=== PATIENT | female | born 1940 | race Caucasian/White ===

== ENCOUNTER 2016-09-20 19:18 | Inpatient (IN) | payer OTHER, BC ==
--- NOTE | 2016-09-20 19:35 | EDPHY ---
H & P Stated Complaint: LLE weakness at 1530, sent from [place] Time Seen by Provider: 09/20/16 19:34 - Personal History Current Tetanus/Diphtheria Vaccine: Yes Current Tetanus Diphtheria and Acellular Pertussis (TDAP): Yes - Medical/Surgical History Hx Asthma: No Hx Chronic Respiratory Disease: Yes Hx Diabetes: No Hx Cardiac Disease: Yes Hx Renal Disease: No Hx Cirrhosis: No Hx Alcoholism: No Hx HIV/AIDS: No Hx Splenectomy or Spleen Trauma: No Other PMH: pseudophakia, hematuria, systitis, seborrheic keratoses, hepatitis, carotid artery diease, aneurysm, ophthalmic artery, hypertension, bilateral posterior vitreous detachment, macular degeneration, subconjuctival hemorrhage of R eye, peripheral neuropathy, sleep apnea, insomnia, major depression, dyslipidemia, vitamin D deficiency, hyperthyroidism, hypothyroid, chronic blood loss anemia - Social History Smoking Status: Former smoker Constitutional: Initial Vital Signs Temperature (C) 36.4 C 09/20/16 19:30 Heart Rate 77 09/20/16 19:30 Respiratory Rate 14 09/20/16 19:30 Blood Pressure 169/85 H 09/20/16 19:30 O2 Sat (%) 94 09/20/16 19:30 O2 Delivery Mode Room Air Allergies/Adverse Reactions: iodine Allergy (Verified 09/20/16 19:28) levofloxacin [From Levaquin] Allergy (Verified 09/20/16 19:28) Home Medications: Medication Instructions Recorded Imipramine HCl 09/20/16 LEVOTHYROXINE SODIUM 09/20/16 Lisinopril 09/20/16 Multivitamin 09/20/16 [place] 3 Fish Oil Softgel 09/20/16 Preservision Areds Softgel 09/20/16 Proair Hfa Icu (*) 09/20/16 Remeron soltab 15 mg (*) 09/20/16 Symbicort 80-4.5 Mcg Inhaler 09/20/16 Vitamin D3 09/20/16 Medical Decision Making ED Course/Re-evaluation: CHIEF COMPLAINT: Right-sided weakness HISTORY OF PRESENT ILLNESS: This patient is a 76 year old female who presents with acute weakness to her right arm and right leg beginning at 1700 today and persisting for 1-2 hours and subsequently decreasing over time. She was seen at [facility] and had a CT of her head done at that time which was negative for acute hemorrhage. Upon arrival, she complains of mild residual weakness to her right leg. Her remaining symptoms have fully resolved. She denies headache, dizziness, or sensory deficits. She reports one prior similar episode with right upper extremity weakness 2-3 weeks prior to arrival. She has an extensive medical history including remote history of right-sided AV malformation. REVIEW OF SYSTEMS: A 10 point review of systems was performed and is negative with the exception of the elements mentioned in the history of present illness. PHYSICAL EXAM: HR 77, BP 169/85, O2 Sat 94%, RR 14. Temp noted General Appearance: Alert, well hydrated, appropriate, and non-toxic appearing. Head: Atraumatic without scalp tenderness or obvious injury Eyes: Pupils equal, round, reactive to light and accommodation, EOMI, no trauma , no injection, no nystagmus. Hemorrhagic conjunctiva to right eye ( ophthalmology evaluated yesterday). Ears: Clear bilaterally, no perforation, normal landmarks Nose: Atraumatic, no rhinorrhea, clear. Throat: There is no erythema or exudates, no lesions, normal tonsils, mucus membranes moist. Neck: Supple, 2+ carotid upstroke, nontender, no lymphadenopathy. Respiratory: No retractions, no distress, and no accessory muscle use. Decreased breath sounds bilaterally with mild wheezing. Cardiovascular: Regular rate and rhythm, no murmurs, rubs, or gallops. Bilateral carotid, radial, dorsalis pedis, and posterior tibial pulses intact. Good capillary refill all extremities. Gastrointestinal: Abdomen is soft, nontender, non-distended, no masses, no rebound, no guarding, no peritoneal signs. Musculoskeletal: Normal active ROM of all extremities, atraumatic. Neurological: Alert, appropriate, and interactive. The patient has normal DTRs and non-focal cranial nerves, sensory, and cerebellar exam. Right lower extremity motor weakness. Skin: No rashes, good turgor, no nodules on palpation. Past medical and surgical history: pseudophakia, hematuria, cystitis, seborrheic keratoses, hepatitis, carotid artery disease, aneurysm, ophthalmic artery, hypertension, bilateral posterior vitreous detachment, macular degeneration, subconjuctival hemorrhage of R eye, peripheral neuropathy, sleep apnea, insomnia, major depression, dyslipidemia, vitamin D deficiency, hyperthyroidism, hypothyroid, chronic blood loss anemia Social history: Lives in [place], retired. DIFFERENTIAL DIAGNOSIS: Differential diagnosis for the patient's right-sided weakness includes but is not limited to CVA, TIA, or electrolyte imbalance. MEDICAL DECISION MAKING: This 76 year old female was referred to us by Emergency Medicine staff at [facility] for acute right-sided weakness to her upper and lower extremity presenting at 1700 today and resolving after 2- 3 hours. She had a CT of her head completed at their facility which was reported to me to be negative for acute hemorrhage. Upon arrival to our facility , the majority of her symptoms have resolved. Plan for consultation with the on-call neurologist and subsequent admission. Will order MRI of the brain with and without contrast, echocardiogram, and carotid studies to be taken following admission. 2030: Consultation with Dr. Darek Leavitt, hospitalist, who accepts admission. 2240: Consultation with Dr. Samir Mercer, neurologist, who will visit the patient in the hospital. Departure - Departure Disposition: [facility] Inpatient Acute Clinical Impression: Upper extremity weakness, Lower extremity weakness Condition: Fair Report Scribed for: Evan Jackson Report Scribed by: Ansley Abdi Date of Report: 09/20/16 Time of Report: 20:04
[2016-09-20] MEDS ORDERED: ONDANSETRON 4 MG/2 ML VIAL IVP PRN (20:58)
[2016-09-20] MEDS ORDERED: ONDANSETRON DISINTEGRATING 4 MG TAB PO PRN (20:58)
[2016-09-20] MEDS ORDERED: D5W 1/2 NS 1,000 ML IV SCH (21:00)
--- NOTE | 2016-09-20 21:35 | US ---
Bilateral Duplex/Doppler Carotid Sonography Clinical Indications: Left-sided weakness. Technique: The cervical portions of the carotid and vertebral arteries were imaged and interrogated by color and pulsed Duplex/Doppler. Spectral analysis was performed. Findings: Right Carotid: Right CCA peak systolic velocity = 67 cm/sec Right ICA peak systolic velocity = 58 cm/sec Right ECA peak systolic velocity = 80 cm/sec Right ICA/CCA systolic velocity ratio = 0.9 No flow-limiting carotid stenosis. Mild calcified plaque involving the right carotid bulb and proxima l right internal carotid artery. Left Carotid: Left CCA peak systolic velocity = 54 cm/sec Left ICA peak systolic velocity = 83 cm/sec Left ECA peak systolic velocity = 199 cm/sec Left ICA/CCA systolic velocity ratio = 1.5 No flow-limiting carotid stenosis.. Mild calcified plaque involving the left carotid bulb and proxima l left internal carotid artery. Vertebral Arteries: Antegrade flow is shown by pulsed Doppler of each vertebral artery. Impression: 1. No evidence of flow-limiting carotid stenosis. 2. Mild atherosclerotic disease bilateral carotid bulbs. 3. Bilateral vertebral arteries are patent with antegrade flow. Measurement of carotid stenosis is based on velocity parameters that correlate the residual internal carotid diameter with [place] Symptomatic Carotid Endarterectomy Trial (NASCET) based stenosis levels.
--- NOTE | 2016-09-20 22:01 | PDGENHP ---
History and Physical - Chief Complaint Acute paresis - History of Present Illness Primary care provider: Dr. Ariza HPI: 76-year-old female presents with acute paresis located in the right upper and right lower extremity with associated right mouth paresthesias and onset of symptoms at 3:00 p.m. on the day of presentation. She reports that the character of the paresis was initially weakness in her right lower extremity rendering her unable to stand or ambulate. The duration of the symptoms was persistent and she sought medical attention at [facility]. She reports that the paresis in her right upper extremity has been present over the past 2-3 weeks but it has not been of this severity. Of note, 1 week ago she began experiencing bleeding from her right eye and she saw an buyer who told her that she had and I abrasion resulting in the bleed. She otherwise denies any infectious symptoms. She denies any recent medication changes. History Information - Allergies/Home Medication List Allergies/Adverse Reactions: levofloxacin [From Levaquin] Allergy (Intermediate, Verified 09/20/16 20:55) Gadolinium-Containing Contrast Medi Allergy (Mild, Verified 09/20/16 20:55) Hives iodine Allergy (Mild, Verified 09/20/16 20:55) Hives Home Medications: Cholecalciferol Vit D3 [Vitamin D3 (*)] 1,000 units PO DAILY 09/20/16 [Last Taken 09/19/16] Imipramine HCl [Imipramine HCl 25 mg (*)] 25 mg PO HS 09/20/16 [Last Taken 09/19] Levothyroxine [Synthroid 50 mcg (*)] 50 mcg PO DAILY06 09/20/16 [Last Taken 02/27] Lisinopril [Zestril 10 mg (*)] 5 mg PO DAILY 09/20/16 [Last Taken 09/19/16] Mirtazapine [Remeron soltab 15 mg (*)] 7.5 mg PO HS 09/20/16 [Last Taken ] Multivitamins [Multivitamin (*)] 1 each PO DAILY 09/20/16 [Last Taken 09/19/16] [place]-3 Fatty Acids [Fish Oil 1000 mg (*)] 1,000 mg PO DAILY 09/20/16 [Last Taken 09/19/16] Vit A/Vit C/Vit E/Zinc/Copper [Preservision Areds Softgel] 1 each PO DAILY 09/20 [Last Taken 09/19/16] I have personally reviewed and updated: family history, medical history, social history, surgical history - Past Medical History hypertension Additional medical history: Reported aneurysm on the right. Hypothyroidism. Obstructive sleep apnea. Shortness of breath/possible COPD - Surgical History Reports: cholecystectomy, hysterectomy Additional surgical history: Cataract surgery - Family History Additional family history: Father with CVA at age 90 - Social History Smoking Status: Former smoker Alcohol Use: Occasionally Drug Use: Marijuana (Rarely) Additional social history: Independent, lives in a multilevel house in [place] Review of Systems ROS: 10pt was reviewed & negative except for what was stated in HPI & below Constitutional: Reports: weakness Neurological: Reports: paresthesia (Face), weakness (Right son) Physical Exam Temp Pulse Resp BP Pulse Ox 36.4 C 85 20 138/94 H 94 09/20/16 19:30 09/20/16 20:11 09/20/16 20:11 09/20/16 20:11 09/20/16 20:11 Constitutional: no apparent distress, appears nourished, not in pain Eyes: PERRL, anicteric sclera, EOMI Ears, Nose, Mouth, Throat: moist mucous membranes, hearing normal, ears appear normal, no oral mucosal ulcers Cardiovascular: regular rate and rhythym, no murmur, rub, or gallop, No carotid bruit, No edema Respiratory: no respiratory distress, no rales or rhonchi, clear to auscultation Gastrointestinal: normoactive bowel sounds, soft, non-tender abdomen, no palpable masses Genitourinary: no bladder fullness, no bladder tenderness Skin: warm, normal color, no rashes or abrasions, no fluctuance, no induration, No mottled Musculoskeletal: no muscle tenderness, normal joint ROM, no joint effusions Neurologic: AAOx3, sensation intact bilaterally, weakness (Motor strength 4/5 in the right lower extremity, 5/5 in the right upper extremity), CN II-XII Intact Psychiatric: interacting appropriately, not anxious, not encephalopathic, thought process linear Lab Data & Imaging Review Visualized and Interpreted EKG results: Yes EKG Interpretation: Positive for: other (Normal sinus rhythm with Q-wave in lead 3 and AVF) Assessment & Plan Assessment: 76-year-old female presents with suspected acute CVA Plan: 1. Suspected CVA. Acute, new problem this provider, further workup indicated. Evidenced by right hemiparesis with unresolved symptoms in the right lower extremity as well as right facial paresthesia and no evidence of intracranial hemorrhage on head CT per discussion with Dr. Jackson -patient is outside the window for tPA as her symptom onset was at 3:00 p.m. and she also has a direct contraindication with possible arteriovenous malformation -get MRI of brain without contrast as well as MRA given her possible history of AVM and recent bleeding from her high, although I believe it is less likely that a vascular malformation is the cause of her symptoms given that it was reportedly on the right side and her symptoms correspond with a left-sided hemispheric lesion -get carotid ultrasounds given her contrast allergy to gadolinium -placed on telemetry overnight and monitor for arrhythmias -get echocardiogram with bubble study -get Neurology consultation a.m. -get lipid panel and hemoglobin A1c -get swallow eval, neuro checks, PT OT evaluations, may require a cane is able to ambulate -initiate aspirin 81 mg, statin if LDL is greater than 70 2. Hypertension. Chronic, patient is on home antihypertensive which have yet to be reconciled per outside report was reviewed from 09/20/2016 Deana Zambrano by Jakob De Leon 3. Possible COPD. Continue on home Advair and albuterol inhalers Diet. Cardiac once swallow eval completed Prophylaxis. High risk patient, pharmacologic contraindicated given a possible CVA, SCDs Code. Full per patient, her son and daughter are joint MPOA Disposition. Anticipated discharge is 09/21/2016, pending further workup and treatment as outlined above.
--- NOTE | 2016-09-20 22:18 | MR ---
MRI of the Brain (Without Contrast) at 2137 hours Clinical Indication: Right-sided weakness. Stroke. Technique: T1-weighted images were acquired axially and sagittally from the foramen magnum to the ve rtex. Axial fast inversion recovery, fast T2-weighted, and diffusion-weighted axial images were obta ined without contrast. Findings: The ventricles, cisterns, and sulci are widened consistent with atrophy. No hydrocephalus, midline shift, herniation, or epidural/subdural hematomas. No intracranial hemorrhage or masses. Dif fusion weighted sequence demonstrates 1 cm focus of restricted diffusion in the posterior limb of the left internal capsule consistent with acute infarct. Cerebellar tonsils are in normal position. Pitu itary gland is normal in size. Normal signal flow-void in the superior sagittal sinus, basilar artery , and bilateral internal carotid arteries indicating patency. Paranasal sinuses and mastoid air cells are clear. Scattered hyperintense T2/FLAIR signal foci throughout bilateral cerebral white matter. Impression: 1. A 1 cm acute lacunar infarct in the posterior limb of the left internal capsule. 2. No acute hemorrhage, hydrocephalus, mass effect, or herniation. 3. Mild cerebral atrophy. 4. Multiple nonspecific hyperintense T2/FLAIR signal abnormalities in the white matter of bilateral c erebral hemispheres. Differential diagnosis includes moderate microvascular ischemic gliosis, post-i nfectious/post-inflammatory sequela, atypical demyelinating disease, or migraine-related sequela. Findings and recommendations discussed with Emergency Department physician, Dr. Darci Fitzgerald at 2210 hour, 09/20/2016. Final report concurs with initial preliminary interpretation.
--- NOTE | 2016-09-20 22:34 | MR ---
MR Arteriogram of the [place] at 2154 hours Clinical Indications: Right-sided weakness, R29.818 Neurological changes strongly suggesting intrace rebral aneurysm. Technique: A [id number] gradient echo technique was used for thin axial images at the skull base for evaluation of major vessels of the [place]. Three-dimensional technique was used with a 30-degree gradient echo flip angle and a traveling saturation band. Images were manipulated by the radiologist at the computer workstation. Findings: Major vessels of the [place] are adequately displayed, demonstrating no evidence of aneurysm, vascular malformation, flow-limiting stenosis, or occlusion. Impression: Negative MRA of the [place].
[2016-09-20 22:43] LABS: % IMMATURE GRANULYOCYTES 0.3 % (0.0-1.1); ABSOLUTE IMMATURE GRANULOCYTES 0.02 10^3/uL (0.00-0.10); ADD DIFF? NO; ADD MORPH? NO; ADD SCAN? NO; ATYPICAL LYMPHOCYTE FLAG 0 (0-99); FRAGMENT RBC FLAG 0 (0-99); HEMATOCRIT 43.1 % (38.0-47.0); HEMOGLOBIN 14.6 g/dL (12.6-16.3); LEFT SHIFT FLG 0 (0-99); LIPEMIA HEMOLYSIS FLAG 90 (0-99); MEAN CELL HEMOGLOBIN 30.7 pg (27.9-34.1); MEAN CELL HEMOGLOBIN CONCENTR. 33.9 g/dL (32.4-36.7); MEAN CELL VOLUME 90.7 fL (81.5-99.8); MEAN PLATELET VOLUME 10.4 fL (8.7-11.7); PLATELET CLUMPS FLAG 10 (0-99); PLATELET COUNT 258 10^3/uL (150-400); RED BLOOD CELL COUNT 4.75 10^6/uL (4.18-5.33); RED CELL DISTRIBUTION WIDTH 13.8 % (11.5-15.2)
[2016-09-20 22:52] LABS: INR 1.01 (0.83-1.16); PROTIME(PATIENT) 13.2 SEC (12.0-15.0)
[2016-09-20 22:55] LABS: ANION GAP 13 mEq/L (8-16); CALCIUM 9.8 mg/dL (8.5-10.4); CARBON DIOXIDE 23 mEq/l (22-31); CHLORIDE 110 mEq/L (97-110); CREATININE 0.7 mg/dL (0.6-1.0); GLOMERULAR FILTRATION RATE > 60; GLUCOSE 90 mg/dL (70-100); POTASSIUM 4.2 mEq/L (3.5-5.2); SODIUM 146 mEq/L (134-144)
[2016-09-20 23:05] LABS: TROPONIN I < 0.012 ng/mL (0-0.034)
[2016-09-20] MEDS: IMIPRAMINE HCL 25 MG TAB PO SCH (23:15)
[2016-09-20] MEDS: MIRTAZAPINE 15 MG ODTAB PO SCH (23:15)
[2016-09-21 05:20] LABS: % IMMATURE GRANULYOCYTES 0.6 % (0.0-1.1); ABSOLUTE IMMATURE GRANULOCYTES 0.03 10^3/uL (0.00-0.10); ADD DIFF? NO; ADD MORPH? NO; ADD SCAN? NO; ATYPICAL LYMPHOCYTE FLAG 0 (0-99); FRAGMENT RBC FLAG 20 (0-99); HEMATOCRIT 42.6 % (38.0-47.0); HEMOGLOBIN 14.3 g/dL (12.6-16.3); LEFT SHIFT FLG 0 (0-99); LIPEMIA HEMOLYSIS FLAG 80 (0-99); MEAN CELL HEMOGLOBIN CONCENTR. 33.6 g/dL (32.4-36.7); MEAN CELL VOLUME 89.3 fL (81.5-99.8); MEAN PLATELET VOLUME 10.2 fL (8.7-11.7); PLATELET CLUMPS FLAG 10 (0-99); PLATELET COUNT 246 10^3/uL (150-400); RED BLOOD CELL COUNT 4.77 10^6/uL (4.18-5.33); RED CELL DISTRIBUTION WIDTH 13.8 % (11.5-15.2)
[2016-09-21 05:34] LABS: APTT 30.3 SEC (23.0-38.0); INR 1.05 (0.83-1.16); PROTIME(PATIENT) 13.6 SEC (12.0-15.0)
[2016-09-21] MEDS: LEVOTHYROXINE 50 MCG TAB PO SCH (05:39)
[2016-09-21 05:56] LABS: ALANINE AMINOTRANSFERASE 42 IU/L (9-52); ALKALINE PHOSPHATASE 83 IU/L (38-126); ANION GAP 12 mEq/L (8-16); ASPARTATE AMINOTRANSFERASE 27 IU/L (14-46); BILIRUBIN,TOTAL 0.5 mg/dL (0.1-1.4); CALCIUM 9.6 mg/dL (8.5-10.4); CARBON DIOXIDE 23 mEq/l (22-31); CHLORIDE 109 mEq/L (97-110); CHOLESTEROL 219 mg/dL (140-220); CHOLESTEROL/HDL RATIO 3.84 RATIO (1.00-4.44); CREATININE 0.7 mg/dL (0.6-1.0); GLOMERULAR FILTRATION RATE > 60; GLUCOSE 102 mg/dL (70-100); HIGH DENSITY LIPOPROTEIN 57 mg/dL (40-85); LDL/HDL RATIO 2.49 RATIO (1.00-3.22); LOW DENSITY LIPOPROTEIN 142 mg/dL (80-100); NON-HIGH DENSITY LIPOPROTEIN 162 mg/dL (90-129); POTASSIUM 4.1 mEq/L (3.5-5.2); SODIUM 144 mEq/L (134-144); TOTAL PROTEIN 6.6 g/dL (6.3-8.2); TRIGLYCERIDE 101 mg/dL (35-135); VERY LOW DENSITY LIPOPROTEINS 20 mg/dL (8-25)
[2016-09-21 06:03] LABS: TROPONIN I < 0.012 ng/mL (0-0.034)
[2016-09-21] MEDS: PRESERVISION AREDS2 FORMULA EYE VIT 1 EACH PO SCH (08:38)
[2016-09-21] MEDS: LISINOPRIL 5 MG TAB PO SCH (08:40)
[2016-09-21] MEDS: CHOLECALCIFEROL VIT D3 1,000 UNITS TAB PO SCH (08:40)
[2016-09-21] MEDS: OMEGA-3 FATTY ACIDS 1,000 MG CAP PO SCH (08:40)
[2016-09-21] MEDS: ASPIRIN EC 81 MG TAB PO SCH (08:40)
[2016-09-21] MEDS: MULTIVITAMINS 1 EACH TAB PO SCH (08:41)
[2016-09-21] MEDS ORDERED: LISINOPRIL 10 MG TAB PO SCH (09:00)
[2016-09-21] MEDS ORDERED: NON-FORMULARY NEW DRUG (Vit A/Vit C/Vit E/Zinc/Copper [Preservision Areds Softgel] 1 EACH) PO SCH (09:00)
[2016-09-21 09:46] LABS: HEMOGLOBIN A1C 6.1 % (4.0-6.0)
--- NOTE | 2016-09-21 12:45 | ECHO ---
[id number] + + [address] : : [place] [address] : : [phone] + + Adult Echocardiographic Report + + :Name: KATHARINA WESTBROOK SStudy Date: 09/21/2016 08:13 AM : : Hospital Admission Number: [id number] Loc ation: 342: :: 1940 Gender: Female Height: 65 in : :Age: 76 yrs Race: WH,UN Weight: 145 lb : :Reason For Study: TIA vs CVA/right upper and lower extremity : :weakness BSA: 1.7 me ters2 : + + MMode/2D Measurements & Calculations IVSd: 0.63 cm LVIDd: 4.3 cm FS: 44.2 % Ao root diam: LVPWd: 0.95 cm LVIDs: 2.4 cm EDV(Teich): 3.3 cm 84.5 ml LA dimension: ESV(Teich): 2.9 cm 20.6 ml EF(Teich): 75.7 % LVLd ap4: 6.7 cm SV(MOD-sp4): EDV(MOD-sp4): 25.0 ml 34.0 ml LVLs ap4: 5.6 cm ESV(MOD-sp4): 9.0 ml EF(MOD-sp4): 73.5 % Normal Measurement Values: + + :LVIDd (3.5-5.7cm) IVSd (0.6-1.1cm) LVPWd (0.6-1.1cm) Aortic Root (2.0-3.7cm)Left Atrium (1.5-4.0cm): :LV Vol(d) (76-115ml) LV Vol(s) (29-48ml) Ejec Fraction (50-65%)PV Sly (0.6- 1.2m/s) TV Sly (0.4-1.0m/s) : :MV E Sly (0.8-1.0m/s)MV A Sly (0.3-1.0m/s)LVOT Sly (0.7-1.2m/s) Asc Ao Sly ( 0.9-1.8m/s) : + + Doppler Measurements & Calculations MV E max sly: 68.1 cm/sec Ao V2 max: 88.2 cm/sec MV A max sly: 110.6 cm/sec Ao max P.1 mmHg MV E/A: 0.62 Left Ventricle The left ventricle is normal in size. There is mild concentric left ventricular hypertrophy. Left ventricular systolic function is normal. Ejection Fraction = 65-70%. No regional wall motion abnormalities noted. Right Ventricle The right ventricle is normal in size and function. Atria The left atrial size is normal. Right atrial size is normal. The interatrial septum is intact with no evidence for an atrial septal defect. Mitral Valve The mitral valve is normal in structure and function. There is no evidence of mitral valve prolapse. There is no mitral valve stenosis. There is trace mitral regurgitation. Tricuspid Valve Normal tricuspid valve. There is trace tricuspid regurgitation. Aortic Valve The aortic valve is trileaflet. The aortic valve opens well. There is no aortic stenosis. Trace aortic regurgitation. Pulmonic Valve The pulmonic valve is not well visualized. There is no pulmonic valvular regurgitation. Great Vessels The aortic root is normal size. Pericardium/Pleural There is no pericardial effusion. There is a fat pad seen. Conclusion A complete two-dimensional transthoracic echocardiogram was performed (2D, M-mode, Doppler and color flow Doppler). Incidental finding - short run of SVT. Left ventricular systolic function is normal. There is mild concentric left ventricular hypertrophy. Ejection Fraction = 65-70%. There is trace mitral regurgitation. There is trace tricuspid regurgitation. Trace aortic regurgitation. There is a fat pad seen. * With hx. of TIA and arrythmia seen on study, consider further evaluation for cryptogenic atrial fibrillation. Final Reading Physician: Tanja Ramírez signed on 09/21/2016 12:44 PM Ordering Physician: Evan Jackson Performed By: Mai Garrison RDCS
--- NOTE | 2016-09-21 14:25 | GCON ---
[f rep st] CONSULTATION REFERRING PHYSICIAN: Bret Leavitt MD HISTORY: The patient is a 76-year-old woman who I am asked to see in neurologic consultation regardi ng stroke. History is obtained from the patient as well as review from the medical records. She is presenting in referral from Dr. Ariza in [facility]. She had an acute episode of feeling weakness in her right arm and lower extremity with some paresthesias around the right side of her mo uth at approximately 3 p.m. yesterday. The weakness was in her right lower extremity, and it made it hard for her to stand initially or even walk. She sought help and actually reported that she had no ticed some degree of weakness in the right upper extremity for 2 or 3 weeks but not nearly as severe as it is now. About 1 week ago, she had some bleeding around the right eye and saw Ophthalmology, an d they did not find anything specific other than an abrasion thought to cause the bleeding. I do not know any more details about that. She denies headache. No clear-cut exacerbating, alleviating symp toms. No chest pain, palpitations, or shortness of breath. She has not ever had a previous stroke. REVIEW OF SYSTEMS: Otherwise, a 10-point review of systems was completed and unremarkable except for that noted above. ALLERGIES: Levaquin, gadolinium-enhanced agents, iodine. HOME MEDICATIONS: Vitamin D, imipramine, Synthroid, Zestril, Remeron, and some supplements. FAMILY HISTORY: Notable for stroke. She says that somewhere in the past she was found via a cerebra l angiogram to have a fusiform type aneurysm it sounds like behind the right eye. She said MRI could not really see it, and they had to go do more advanced testing. She believes it was aneurysm, not a n arterial venous malformation, and she remembers being told it was outside on the outer part of the dura rather than internally, but we do not know exactly what was seen. This was done in [place]. ose medical records are not currently available. She has a history of sleep apnea, and there has bee n some shortness of breath and apparently some question of reactive airway disease. Prior cholecyste ctomy, hysterectomy, cataract surgery. She smoked in the past but not recently. Rare marijuana expo sure. Rare alcohol. She lives independently by herself and has an animal. PHYSICAL EXAMINATION: VITAL SIGNS: Blood pressure is 152/84, pulse is 86, respirations 17, temperat ure 36.5. GENERAL: She is a well-developed woman in no acute distress. EYES: Clear. NECK: Suppl e with no bruits or masses. CARDIAC: Regular rate and rhythm. No murmur. EXTREMITIES: No cyanosi s or edema. NEUROLOGIC: She is awake, alert, and attentive with clear fluent speech. She has an NI H stroke scale of 3. Pupils are 3 mm and reactive. No visual field loss. Extraocular movements are intact. Unremarkable fundi. Normal facial sensation and strength. I do not detect any definite fa cial weakness currently. Palate elevates symmetrically. Tongue protrudes midline. Hearing is prese rved. No weakness of head turning or shoulder shrug. Palate elevates symmetrically. Tongue protrud es midline. Motor exam, normal muscle bulk and tone with mild drift in the right upper extremity and right lower extremity with 4/5 weakness on the right side. 5/5 on the left. No abnormal movements. Rapid alternating movements are slightly slowed in the right hand compared to the left. She was ab le ambulate today with the physical therapist using her walker and maintains balance fairly well but still has a little bit of weakness in the right lower extremity. Sensation is preserved for temperat ure and light touch. She is not ataxic on [id number]. Her gait is not ataxic, but she is a filipe le cautious. Reflexes are 1+. No Babinski sign seen. DIAGNOSTIC STUDIES: Include echocardiogram without clear-cut embolic source, and she has normal ejec tion fraction. Electrolytes are unremarkable. Her LDL cholesterol is 142. The INR is normal. The CBC is normal. MR angiogram of the head did not show any significant abnormalities. Specifically, t here was no evidence of an aneurysm or arteriovenous malformation. Carotid ultrasound revealed no he modynamically significant stenosis of the carotid system. The brain MRI shows some white matter isch emic changes and an area of acute infarct in the posterior limb of the left internal capsule about a centimeter in size with no hemorrhages. IMPRESSION: The patient has suffered an acute ischemic stroke yesterday. She was outside the window when she came to [facility] for acute stroke intervention with tPA. She is stable a nd is showing signs of improvement already with a mild right hemiparesis. She has a good chance for a good recovery although I explained I am not sure she will have complete recovery. She probably terry s not need more diagnostic studies at this stage. I think the likelihood of a cardioembolic event is very low. I do not think she has to do prolonged cardiac monitoring. This looks consistent with a small-vessel ischemic type of event rather than embolism. I would recommend she go on statin therapy daily prior to discharge and aspirin, continue 81 mg daily, and we will determine whether she needs outpatient physical therapy versus the low probability of doing any inpatient rehab. More than likel y home care will be appropriate. /[id number]/MODL
--- NOTE | 2016-09-21 16:11 | HOSPPROG ---
Hospitalist Progress Note Assessment/Plan: * acute lacunar CVA of internal capsule * carotids/ echo okay * did have a run of SVT during echocardiogram. Type of stroke not consistent with embolic phenomenon but per probably refer to cardiology outpatient for monitor * still pretty weak and unsteady. Will keep the inpatient 1 more day * hypertension Subjective: weakness seems to be improving although fairly unsteady and does not feel comfortable going home Objective: Vital Signs Temp Pulse Resp BP Pulse Ox 36.9 C 92 17 132/73 H 92 09/21/16 16:00 09/21/16 16:00 09/21/16 16:00 09/21/16 16:00 09/21/16 16:00 Laboratory Results 09/21/16 04:23 09/21/16 04:23 09/20/16 09/21/16 09/22/16 05:59 05:59 05:59 Intake Total 400 Output Total 800 700 Balance -400 -700 PT 13.6 SEC (12.0-15.0) 09/21/16 04:23 INR 1.05 (0.83-1.16) 09/21/16 04:23 - Physical Exam Constitutional: no apparent distress, appears nourished, not in pain Eyes: anicteric sclera, EOMI Ears, Nose, Mouth, Throat: moist mucous membranes, hearing normal, ears appear normal Cardiovascular: regular rate and rhythym, no murmur, rub, or gallop Respiratory: no respiratory distress, no rales or rhonchi, clear to auscultation Gastrointestinal: normoactive bowel sounds, soft, non-tender abdomen, no palpable masses Skin: warm Neurologic: AAOx3, other ( right-sided weakness) Psychiatric: interacting appropriately, not anxious, not encephalopathic, thought process linear ICD10 Worksheet Patient Problems: Problems Problem Status Diagnosed Lower extremity weakness Acute Upper extremity weakness Acute
[2016-09-21] MEDS: ACETAMINOPHEN 325 MG TAB PO PRN (18:54)
[2016-09-21] MEDS: IMIPRAMINE HCL 25 MG TAB PO SCH (21:18)
[2016-09-21] MEDS: MIRTAZAPINE 15 MG ODTAB PO SCH (21:18)
[2016-09-22] MEDS: LEVOTHYROXINE 50 MCG TAB PO SCH (04:49)
[2016-09-22] MEDS: ACETAMINOPHEN 325 MG TAB PO PRN ×2 (04:52→12:33)
[2016-09-22] MEDS: MULTIVITAMINS 1 EACH TAB PO SCH (08:41)
[2016-09-22] MEDS: OMEGA-3 FATTY ACIDS 1,000 MG CAP PO SCH (08:42)
[2016-09-22] MEDS: CHOLECALCIFEROL VIT D3 1,000 UNITS TAB PO SCH (08:42)
[2016-09-22] MEDS: LISINOPRIL 5 MG TAB PO SCH (08:42)
[2016-09-22] MEDS: PRESERVISION AREDS2 FORMULA EYE VIT 1 EACH PO SCH (08:43)
[2016-09-22] MEDS: ASPIRIN EC 81 MG TAB PO SCH (08:45)
--- NOTE | 2016-09-22 09:35 | NEUROPROG ---
Assessment: The patient has an acute cerebral ischemic infarction with an NIH stroke scale of 2. the exact source is uncertain. She should continue on anti- platelet therapy and have statin added prior to discharge. She can have outpatient cardiac evaluation for consideration of prolonged monitoring. Outpatient therapy is likely to be arranged for anticipated discharge later today. I gave her my card with instructions not to drive until she sees me in about 1 month. Subjective: I am following up on this patient's case after seeing her yesterday for neurologic consultation. She was found to have a left basal ganglia infarction. She has mild deficits but continues to be aware of some right facial droop and right-sided weakness. She is describing some mild headache which is not associated with any other new symptoms. However, she would like some treatment and says Tylenol does not usually help her. The patient is describing no nausea or vomiting. No change in vision speech chewing or swallowing. She has no chest pain or shortness of breath. Objective: Vital Signs Temp Pulse Resp BP Pulse Ox 36.6 C 87 18 134/84 H 95 09/22/16 07:36 09/22/16 07:36 09/22/16 07:36 09/22/16 07:36 09/22/16 07:36 09/21/16 09/22/16 09/23/16 05:59 05:59 05:59 Intake Total 250 Output Total 400 Balance -150 PT 13.6 SEC (12.0-15.0) 09/21/16 04:23 INR 1.05 (0.83-1.16) 09/21/16 04:23 The patient is awake alert and attentive. She is oriented to person place and time. She has extraocular movements which are intact. She has a right lower facial droop but no facial asymmetry on sensation. The hearing is preserved. Motor examination reveals mild weakness of the right upper extremity 4/5 and about the same in the lower extremities. Sensation is preserved for temperature and light touch. She is not ataxic in her upper extremities. Allergies/Adverse Reactions: levofloxacin [From Levaquin] Allergy (Intermediate, Verified 09/20/16 20:55) Gadolinium-Containing Contrast Medi Allergy (Mild, Verified 09/20/16 20:55) Hives iodine Allergy (Mild, Verified 09/20/16 20:55) Hives
[2016-09-22] MEDS ORDERED: KETOROLAC 15 MG/1 ML SDV IVP ONE (11:10)
--- NOTE | 2016-09-22 15:35 | HOSPPROG ---
Hospitalist Progress Note Assessment/Plan: * acute lacunar CVA of internal capsule * carotids/ echo okay * did have a run of SVT during echocardiogram. Type of stroke not consistent with embolic phenomenon but per probably refer to cardiology outpatient for monitor * still pretty weak and unsteady. * will need to go to inpatient rehab * hypertension Subjective: Is still weak and unsteady. Physical therapy is recommending inpatient rehab. Did have a headache this morning but is now better Objective: Vital Signs Temp Pulse Resp BP Pulse Ox 36.9 C 108 H 20 127/79 H 92 09/22/16 12:00 09/22/16 12:00 09/22/16 12:00 09/22/16 12:00 09/22/16 12:00 09/21/16 09/22/16 09/23/16 05:59 05:59 05:59 Intake Total 250 200 Output Total 400 100 Balance -150 100 PT 13.6 SEC (12.0-15.0) 09/21/16 04:23 INR 1.05 (0.83-1.16) 09/21/16 04:23 - Physical Exam Constitutional: no apparent distress, appears nourished, not in pain Eyes: anicteric sclera, EOMI Ears, Nose, Mouth, Throat: moist mucous membranes, hearing normal Cardiovascular: regular rate and rhythym, no murmur, rub, or gallop Respiratory: no respiratory distress, no rales or rhonchi, clear to auscultation Skin: warm Neurologic: AAOx3, other ( right-sided) Psychiatric: interacting appropriately, not anxious, not encephalopathic, thought process linear ICD10 Worksheet Patient Problems: Problems Problem Status Diagnosed Lower extremity weakness Acute Upper extremity weakness Acute
[2016-09-22] MEDS: MIRTAZAPINE 15 MG ODTAB PO SCH (19:48)
[2016-09-22] MEDS: IMIPRAMINE HCL 25 MG TAB PO SCH (19:48)
[2016-09-23] MEDS: LEVOTHYROXINE 50 MCG TAB PO SCH (05:07)
[2016-09-23 07:27] VITALS: BP 141/82; PULSE 90; RESP 16; TEMP 97.9; O2SAT 93
[2016-09-23] MEDS: OMEGA-3 FATTY ACIDS 1,000 MG CAP PO SCH (08:17)
[2016-09-23] MEDS: MULTIVITAMINS 1 EACH TAB PO SCH (08:18)
[2016-09-23] MEDS: CHOLECALCIFEROL VIT D3 1,000 UNITS TAB PO SCH (08:18)
[2016-09-23] MEDS: ASPIRIN EC 81 MG TAB PO SCH (08:18)
[2016-09-23] MEDS: PRESERVISION AREDS2 FORMULA EYE VIT 1 EACH PO SCH (08:18)
[2016-09-23] MEDS: LISINOPRIL 5 MG TAB PO SCH (08:18)
[2016-09-23] MEDS: ACETAMINOPHEN 325 MG TAB PO PRN (08:18)
--- NOTE | 2016-09-23 10:12 | CPEKG ---
Heart Rate: 90 RR Interval: 667 P-R Interval: 136 QRSD Interval: 80 QT Interval: 372 QTC Interval: 455 P [place]: 4 QRS [place]: 9 T Wave [place]: 54 EKG Severity - OTHERWISE NORMAL ECG - EKG Impression: SINUS RHYTHM EKG Impression: LOW VOLTAGE IN FRONTAL LEADS Electronically Signed By: Stew Mackey 23-Sep-2016 14:52:50
--- NOTE | 2016-09-23 10:20 | PDIAF ---
- Diagnosis Diagnosis: cva Code Status: Full Code - Medication Management Discharge Medications: Medications to Continue on Transfer Cholecalciferol Vit D3 [Vitamin D3 (*)] 1,000 units PO DAILY 09/20/16 [Last Taken 09/19/16] Imipramine HCl [Imipramine HCl 25 mg (*)] 25 mg PO HS 09/20/16 [Last Taken 09/19] Levothyroxine [Synthroid 50 mcg (*)] 50 mcg PO DAILY06 09/20/16 [Last Taken 02/27] Lisinopril [Zestril 10 mg (*)] 5 mg PO DAILY 09/20/16 [Last Taken 09/19/16] Mirtazapine [Remeron soltab 15 mg (*)] 7.5 mg PO HS 09/20/16 [Last Taken ] Multivitamins [Multivitamin (*)] 1 each PO DAILY 09/20/16 [Last Taken 09/19/16] [place]-3 Fatty Acids [Fish Oil 1000 mg (*)] 1,000 mg PO DAILY 09/20/16 [Last Taken 09/19/16] Vit A/Vit C/Vit E/Zinc/Copper [Preservision Areds Softgel] 1 each PO DAILY 09/20 [Last Taken 09/19/16] Aspirin EC [Aspirin EC 81 mg (*)] 81 mg PO DAILY #0 tab 09/23/16 [Last Taken Unknown] Atorvastatin Calcium [Lipitor 20 mg (*)] 20 mg PO DAILY #0 tab 09/23/16 [Last Taken Unknown] Discharge Medications: Refer to the Discharge Home Medication list for PRN reason. - Orders Services needed: Physical Therapy, Occupational Therapy - Follow Up Care Current Providers and Referrals: [place],. [Primary Care Provider] - As per Instructions Keny Singletary MD [Medical Doctor] - follow up in 10 days (needs 1 month holter )
--- NOTE | 2016-09-23 11:44 | GDS ---
[f rep st] DISCHARGE SUMMARY DISCHARGE DIAGNOSES: 1. Acute lacunar left internal capsule cerebrovascular accident. 2. History of hypertension. 3. History of obstructive sleep apnea. HISTORY: This is a 76-year-old female who presented with right-sided weakness. HOSPITAL COURSE: Patient was admitted and MRI was done. It did show a lacunar CVA in the left inter nal capsule. She did have an echocardiogram which was normal though it appeared that at some point d uring that she did have an episode of SVT. We did not see this during her telemetry meetings. This type of CVA that she had is less likely to be embolic. However, she should probably follow up with Shauna chow for a 24 hour Holter monitor after discharge from rehab. She will be going to inpatient re hab. TIME SPENT: Greater than 30 minutes was spent on discharge. /[id number]/MODL
== END 2016-09-23 12:19 | DRG 66 ==
LOC: EEVIPCON 20:22 → F3N 22:38 → OBSVTOIN 09-21 16:07
PROVIDERS: ADMIT Internal Medicine; ATTEND Internal Medicine
DX: I63.8 Other cerebral infarction (principal); I10 Essential (primary) hypertension; G47.33 Obstructive sleep apnea (adult) (pediatric); E03.9 Hypothyroidism, unspecified; E78.5 Hyperlipidemia, unspecified; E55.9 Vitamin D deficiency, unspecified; Z87.891 Personal history of nicotine dependence
CPT/HCPCS: 97116-GP; 97161-GP; 97165-GO; 97535-GO; G0378; G8978-GP-CJ; G8979-GP-CI; G8987-GO-CJ; G8988-GO-CI; J1885